=== PATIENT | female | born 1995 | race African-American/Black ===

== ENCOUNTER 2019-11-22 10:52 | Emergency (ER) | payer BC, OTHER ==
[~2019-11-22] VITALS: Ht 175.3 cm; Wt 103.9 kg
[~2019-11-22 10:52] MED LIST: AMOXICILLIN 50500 M1 PO; NAPROSYN500 M1 PO; VENTOLIN HFA 1818 GM INH
[2019-11-22 10:54] VITALS: BP 119/81
[2019-11-22] MEDS ORDERED: ALBUTEROL2.5 MG/31 INH (12:32)
[2019-11-22] MEDS ORDERED: TESSALON PERLE100 MG PO (12:32)
[2019-11-22] MEDS ORDERED: PREDNISONE 20 M20 MG PO (12:32)
== END 2019-11-22 12:45 | disposition home or self-care (01) ==
LOC: ER 10:52
DX: J45.909 Unspecified asthma, uncomplicated (principal); R05 Cough; Z90.49 Acquired absence of other specified parts of digestive tract

== ENCOUNTER 2020-10-30 05:45 | Emergency (ER) | payer OTHER ==
[~2020-10-30] VITALS: Ht 175.3 cm; Wt 106.6 kg
[~2020-10-30 05:45] MED LIST changes: +ALBUTEROL2.5 MG/31 INH; +PREDNISONE 20 M20 MG PO; +TESSALON PERLE100 MG PO
[2020-10-30] MEDS ORDERED: ZINC PO (06:07)
[2020-10-30] MEDS ORDERED: VIT C PO ×2 (06:07)
[2020-10-30] MEDS ORDERED: SUPER THERAVIT1 EACH PO (06:07)
[2020-10-30 07:07] LABS: ABSOLUTE NEUTROPHILS 8.9 thou/uL (1.4-8.2); BASOPHILS 0.2 % (0.0-2.0); EOSINOPHILS 2.1 % (0.0-3.0); HEMATOCRIT 40.9 % (37.0-47.0); HEMOGLOBIN 13.7 gm/dL (12.0-15.0); LYMPHOCYTES 15.7 % (24.0-44.0); MCH 28.3 pg (26.0-34.0); MCHC 33.5 g/dL (28.0-37.0); MCV 84.5 fL (80.0-100.0); PLATELET COUNT 281 thou/uL (150-400); RBC 4.85 mil/uL (4.20-5.00); RDW 13.8 % (10.5-14.5); WBC 11.2 thou/uL (4.0-11.0)
[2020-10-30 07:10] LABS: CALCIUM 8.6 mg/dL (8.5-10.1)
[2020-10-30 07:15] LABS: POTASSIUM 4.1 mmol/L (3.5-5.1)
[2020-10-30] MEDS ORDERED: PREDNISONE50 MG PO (08:25)
[2020-10-30] MEDS ORDERED: PROAIR HFA8.5 GM INH (08:25)
[2020-10-30] MEDS ORDERED: ALBUTEROL2.5 MG/0.1 INH (08:25)
[2020-10-30] MEDS ORDERED: IPRATROPIU0.2 MG/1 M INH (08:25)
[2020-10-30 08:28] VITALS: BP 122/79
== END 2020-10-30 08:28 | disposition home or self-care (01) ==
LOC: ER 05:45
PROVIDERS: Emergency Medicine
DX: J45.901 Unspecified asthma with (acute) exacerbation (principal); Z90.49 Acquired absence of other specified parts of digestive tract; Z79.899 Other long term (current) drug therapy

== ENCOUNTER 2021-01-16 22:15 | Emergency (ER) | payer OTHER ==
[~2021-01-16] VITALS: Ht 175.3 cm; Wt 104.3 kg
[~2021-01-16 22:15] MED LIST changes: +ALBUTEROL2.5 MG/0.1 INH; +IPRATROPIU0.2 MG/1 M INH; +PREDNISONE50 MG PO; +PROAIR HFA8.5 GM INH; +SUPER THERAVIT1 EACH PO; +VIT C PO; +ZINC PO
[2021-01-17 00:37] VITALS: BP 132/76
== END 2021-01-17 00:40 | disposition home or self-care (01) ==
LOC: ER 22:15
DX: R68.84 Jaw pain (principal); J45.909 Unspecified asthma, uncomplicated; Z90.49 Acquired absence of other specified parts of digestive tract; Z79.899 Other long term (current) drug therapy; Z91.09 Other allergy status, other than to drugs and biological substances